=== PATIENT | female | born 1985 | race Caucasian/White ===

== ENCOUNTER 2017-09-24 14:47 | Emergency (ER) | payer OTHER, MEDICAID ==
[~2017-09-24] VITALS: Ht 167.6 cm; Wt 63.5 kg
[~2017-09-24 14:47] MED LIST: FLAGYL500 MG PO; NORCO 5-325 TA1 EACH PO; PENICILLIN VK250 MG PO
[2017-09-24 15:12] LABS: URINE BILIRUBIN NEGATIVE (Negative); URINE BLOOD NEGATIVE (Negative); URINE CLARITY CLEAR; URINE COLOR STRAW; URINE GLUCOSE-RANDOM NEGATIVE (Negative); URINE KETONES NEGATIVE (Negative); URINE LEUKOCYTES-REFLEX 1+ (Negative); URINE NITRITE-REFLEX NEGATIVE (Negative); URINE PROTEIN NEGATIVE (Negative); URINE SPECIFIC GRAVITY <= 1.005 (1.005-1.030); URINE UROBILINOGEN 0.2 E.U./dl (0.2-1.0)
[2017-09-24 15:19] LABS: CASTS None Seen /LPF (None Seen); CRYSTALS None Seen /LPF (None Seen); MUCUS None Seen strn/LPF (None Seen); SQUAMOUS 4-10 Moderate /LPF (0-3)
[2017-09-24 15:20] LABS: URINE WBC-REFLEX 0-5 Rare /HPF (0-5)
[2017-09-24 15:21] LABS: BACTERIA-REFLEX 1-9 Few /HPF (None Seen); URINE RBC None Seen /HPF (0-2)
[2017-09-24] MEDS ORDERED: ACYCLOVIR 200200 MG PO (15:38)
[2017-09-24] MEDS ORDERED: LIDOCAINE VISC100 ML TOP (15:38)
[2017-09-24 15:46] VITALS: BP 138/70
== END 2017-09-24 15:47 | disposition home or self-care (01) ==
LOC: M.ERS 14:47
PROVIDERS: Nurse Practitioner Family
DX: A60.04 Herpesviral vulvovaginitis (principal); R30.0 Dysuria